=== PATIENT | male | born 1945 | race Caucasian/White ===

== ENCOUNTER 2017-07-01 11:37 | Emergency (ER) | payer MEDICARE ==
[~2017-07-01] VITALS: Ht 167.6 cm; Wt 83.2 kg
[2017-07-01 12:53] LABS: URINE BLOOD DIPSTICK LARGE (NEGATIVE); URINE GLUCOSE - DIPSTICK 100 mg/dL (NEGATIVE); URINE KETONE TRACE mg/dL (NEGATIVE); URINE LEUK ESTERASE NEGATIVE (NEGATIVE); URINE NITRITE - DIPSTICK NEGATIVE (Negative); URINE PROTEIN - DIPSTICK 100 mg/dL (NEG-TRACE); URINE SPECIFIC GRAVITY >=1.030; URINE UROBILINOGEN - DIPSTICK 0.2 E.U./dL (0.2)
[2017-07-01 12:54] LABS: URINE BILIRUBIN - DIPSTICK SMALL (NEGATIVE); URINE CLARITY CLOUDY; URINE COLOR DK. YELLOW; URINE EPITHELIAL CELLS MODERATE EPI/hpf (0-FEW); URINE RBC 25-50 RBC/hpf (0-5)
[2017-07-01 13:43] LABS: HEMATOCRIT 42.3 % (39.0-50.0); HEMOGLOBIN 14.1 g/dl (14.0-18.0); IMMATURE GRANULOCYTES 0.7 % (0.0-1.0); MEAN CELL VOLUME 95.3 fL CALC (80.0-100.0); MEAN CORPUSCULAR HGB 31.8 pG CALC (26.0-32.0); MEAN CORPUSCULAR HGB CONC 33.3 g/L CALC (32.0-36.0); NEUT# 13.12 thou/uL (1.82-7.42); RED BLOOD COUNT 4.44 mill/uL (4.70-6.10); RED CELL DISTRI WIDTH 13.2 % (11.5-15.5)
[2017-07-01 13:50] LABS: ALBUMIN 4.4 g/dL (3.2-5.0); BILIRUBIN, TOTAL 0.8 mg/dL (0.0-1.4); CALCIUM 9.6 mg/dL (8.4-10.2); CREATININE 2.8 mg/dL (0.7-1.3); POTASSIUM 4.6 mmol/l (3.5-5.1); TOTAL PROTEIN 7.6 g/dL (6.3-8.2)
[2017-07-01] MEDS ORDERED: BACTRIM DS1 TAB PO (14:46)
[2017-07-01] MEDS ORDERED: TAMSULOSIN0.4 MG PO (14:46)
[2017-07-01] MEDS ORDERED: NORCO1 TA1 PO (14:46)
[2017-07-01] MEDS ORDERED: MOTRIN400 MG PO (14:46)
[2017-07-01 15:16] VITALS: BP 149/80
== END 2017-07-01 15:17 | disposition home or self-care (01) ==
LOC: ED 11:37
PROVIDERS: Family Medicine
DX: N13.2 Hydronephrosis with renal and ureteral calculous obstruction (principal); E11.9 Type 2 diabetes mellitus without complications

== ENCOUNTER 2019-07-20 11:03 | Inpatient (IN) | payer MEDICARE ==
[~2019-07-20] VITALS: Ht 152.4 cm; Wt 63.0 kg
[2019-07-20] VITALS (10 sets, daily range): BP systolic 99–129; BP diastolic 53–73
[~2019-07-20 11:03] MED LIST: BACTRIM DS1 TAB PO; MOTRIN400 MG PO; NORCO1 TA1 PO; TAMSULOSIN0.4 MG PO
[2019-07-20 12:01] LABS: HEMOGLOBIN 13.6 g/dl (14.0-18.0); IMMATURE GRANULOCYTES 4.6 % (0.0-5.0); MEAN CELL VOLUME 94.8 fL CALC (80.0-100.0); MEAN CORPUSCULAR HGB 30.7 pG CALC (26.0-32.0); MEAN CORPUSCULAR HGB CONC 32.4 g/L CALC (32.0-36.0); NEUT# 25.15 thou/uL (1.82-7.42); RED BLOOD COUNT 4.43 mill/uL (4.70-6.10); RED CELL DISTRI WIDTH 12.4 % (11.5-15.5)
[2019-07-20 12:16] LABS: ALBUMIN 3.8 g/dL (3.2-5.0); AMYLASE 294 u/l (30-110); BILIRUBIN, TOTAL 0.5 mg/dL (0.0-1.4); BUN 62 mg/dL (8-23); BUN/CREATININE RATIO 17 (12-20 (CALC)); CHLORIDE 100 mmol/l (95-108); CREATININE 3.7 mg/dL (0.7-1.3); GFR 16 ML/MIN (>=60 (CALC)); GFR FOR AFR.AMER. 20 ML/MIN (>=60 (CALC)); MAGNESIUM 3.2 mg/dL (1.6-2.3); SGOT/AST 16 u/l (19-48); SODIUM 139 mmol/l (137-146); TOTAL PROTEIN 7.9 g/dL (6.3-8.2)
[2019-07-20 12:21] LABS: ACT PARTIAL THROMBO TIME 27.9 SECONDS (20.0-32.5); INTERNATIONAL NORMALIZED RATIO 1.2 RATIO (0.7-1.3); PROTHROMBIN TIME 12.1 SECONDS (9.0-12.5)
[2019-07-20 12:25] LABS: ALKALINE PHOSPHATASE 147 u/l (38-126); CARBON DIOXIDE < 5 mmol/l (22-30); ETHYL ALCOHOL < 10 mg/dl (0-30); LIPASE 2420 u/l (23-300); POTASSIUM 5.5 mmol/l (3.5-5.1)
[2019-07-20 13:45] LABS: URINE BLOOD DIPSTICK LARGE (NEGATIVE); URINE COLOR YELLOW; URINE GLUCOSE - DIPSTICK >=1000 mg/dL (NEGATIVE); URINE KETONE >=80 mg/dL (NEGATIVE); URINE LEUK ESTERASE NEGATIVE (NEGATIVE); URINE NITRITE - DIPSTICK NEGATIVE (Negative); URINE PH 5.5 (4.5-8.0); URINE PROTEIN - DIPSTICK 30 mg/dL (NEG-TRACE); URINE SPECIFIC GRAVITY 1.025; URINE UROBILINOGEN - DIPSTICK 0.2 E.U./dL (0.2)
[2019-07-20 13:49] LABS: URINE BILIRUBIN - DIPSTICK NEGATIVE (NEGATIVE)
[2019-07-20 13:50] LABS: BARBITURATES NEGATIVE (NEGATIVE); COCAINE NEGATIVE (NEGATIVE); METHADONE NEGATIVE (NEGATIVE); OXCYCODONE NEGATIVE (NEGATIVE); TETRAHYDROCANNABIONOL NEGATIVE (NEGATIVE); TRICYLIC ANTIDEPRESSANTS NEGATIVE (NEGATIVE)
[2019-07-20 13:51] LABS: URINE BACTERIA FEW hpf; URINE SQUAMOUS EPITHELIAL CELL FEW EPI/hpf (0-FEW)
[2019-07-20 14:07] LABS: BUN 63 mg/dL (8-23); BUN/CREATININE RATIO 20 (12-20 (CALC)); CHLORIDE 107 mmol/l (95-108); CREATININE 3.2 mg/dL (0.7-1.3); GFR 19 ML/MIN (>=60 (CALC)); GFR FOR AFR.AMER. 23 ML/MIN (>=60 (CALC)); SODIUM 141 mmol/l (137-146)
[2019-07-20 14:32] LABS: ANION GAP 35 (6-22 (CALC)); CARBON DIOXIDE < 5 mmol/l (22-30)
[2019-07-20 14:33] LABS: POTASSIUM 5.7 mmol/l (3.5-5.1)
[2019-07-20 18:09] LABS: BUN 55 mg/dL (8-23); BUN/CREATININE RATIO 21 (12-20 (CALC)); CHLORIDE 111 mmol/l (95-108); CREATININE 2.6 mg/dL (0.7-1.3); GFR 24 ML/MIN (>=60 (CALC)); GFR FOR AFR.AMER. 30 ML/MIN (>=60 (CALC)); POTASSIUM 4.8 mmol/l (3.5-5.1); SODIUM 143 mmol/l (137-146)
[2019-07-20 18:15] LABS: ANION GAP 32 (6-22 (CALC)); CARBON DIOXIDE < 5 mmol/l (22-30)
[2019-07-20 21:27] LABS: POTASSIUM 4.4 mmol/l (3.5-5.1)
[2019-07-21] VITALS (16 sets, daily range): BP systolic 81–123; BP diastolic 39–67
[2019-07-21 01:42] LABS: CREATININE 1.6 mg/dL (0.7-1.3); POTASSIUM 3.8 mmol/l (3.5-5.1)
[2019-07-21 05:45] LABS: MEAN CELL VOLUME 90.7 fL CALC (80.0-100.0); MEAN CORPUSCULAR HGB 30.5 pG CALC (26.0-32.0); MEAN CORPUSCULAR HGB CONC 33.7 g/L CALC (32.0-36.0); RED BLOOD COUNT 3.11 mill/uL (4.70-6.10); RED CELL DISTRI WIDTH 12.4 % (11.5-15.5)
[2019-07-21 05:59] LABS: HEMATOCRIT 28.2 % (39.0-50.0); HEMOGLOBIN 9.5 g/dl (14.0-18.0)
[2019-07-21 06:07] LABS: CREATININE 1.5 mg/dL (0.7-1.3); CREATININE 1.6 mg/dL (0.7-1.3); POTASSIUM 3.5 mmol/l (3.5-5.1); POTASSIUM 3.7 mmol/l (3.5-5.1)
[2019-07-21 06:29] LABS: BILIRUBIN, TOTAL 0.2 mg/dL (0.0-1.4); TOTAL PROTEIN 5.1 g/dL (6.3-8.2)
[2019-07-21 06:30] LABS: ALBUMIN 2.2 g/dL (3.2-5.0)
[2019-07-21 10:18] LABS: CREATININE 1.4 mg/dL (0.7-1.3); POTASSIUM 3.5 mmol/l (3.5-5.1)
[2019-07-22] VITALS (10 sets, daily range): BP systolic 94–119; BP diastolic 55–74
[2019-07-22 08:47] LABS: HEMATOCRIT 32.9 % (39.0-50.0); HEMOGLOBIN 10.9 g/dl (14.0-18.0); IMMATURE GRANULOCYTES 1.4 % (0.0-5.0); MEAN CELL VOLUME 92.2 fL CALC (80.0-100.0); MEAN CORPUSCULAR HGB 30.5 pG CALC (26.0-32.0); MEAN CORPUSCULAR HGB CONC 33.1 g/L CALC (32.0-36.0); NEUT# 9.49 thou/uL (1.82-7.42); RED BLOOD COUNT 3.57 mill/uL (4.70-6.10); RED CELL DISTRI WIDTH 12.6 % (11.5-15.5)
[2019-07-22 09:06] LABS: ALBUMIN 2.5 g/dL (3.2-5.0); ALKALINE PHOSPHATASE 91 u/l (38-126); BUN 29 mg/dL (8-23); BUN/CREATININE RATIO 26 (12-20 (CALC)); CARBON DIOXIDE 13 mmol/l (22-30); CHLORIDE 113 mmol/l (95-108); CREATININE 1.1 mg/dL (0.7-1.3); GFR > 60 ML/MIN (>=60 (CALC)); GFR FOR AFR.AMER. > 60 ML/MIN (>=60 (CALC)); SODIUM 136 mmol/l (137-146); TOTAL PROTEIN 5.6 g/dL (6.3-8.2)
[2019-07-22 09:08] LABS: ANION GAP 14 (6-22 (CALC)); BILIRUBIN, TOTAL 0.5 mg/dL (0.0-1.4); POTASSIUM 4.4 mmol/l (3.5-5.1); SGOT/AST 23 u/l (19-48)
[2019-07-23 04:00] VITALS: BP 136/68
[2019-07-23 07:06] LABS: ANION GAP 16 (6-22 (CALC)); BUN 20 mg/dL (8-23); BUN/CREATININE RATIO 19 (12-20 (CALC)); CARBON DIOXIDE 17 mmol/l (22-30); CHLORIDE 107 mmol/l (95-108); CREATININE 1.1 mg/dL (0.7-1.3); GFR > 60 ML/MIN (>=60 (CALC)); GFR FOR AFR.AMER. > 60 ML/MIN (>=60 (CALC)); POTASSIUM 3.3 mmol/l (3.5-5.1); SODIUM 137 mmol/l (137-146)
[2019-07-23 07:48] VITALS: BP 114/74
[2019-07-23 14:50] VITALS: BP 95/59
[2019-07-23 19:25] VITALS: BP 101/65
[2019-07-24 04:00] VITALS: BP 104/64
[2019-07-24 05:18] LABS: HEMATOCRIT 33.3 % (39.0-50.0); HEMOGLOBIN 11.4 g/dl (14.0-18.0); MEAN CORPUSCULAR HGB 30.8 pG CALC (26.0-32.0); MEAN CORPUSCULAR HGB CONC 34.2 g/L CALC (32.0-36.0); RED BLOOD COUNT 3.7 mill/uL (4.70-6.10); RED CELL DISTRI WIDTH 12.8 % (11.5-15.5)
[2019-07-24 05:36] LABS: ANION GAP 13 (6-22 (CALC)); BUN 19 mg/dL (8-23); BUN/CREATININE RATIO 16 (12-20 (CALC)); CHLORIDE 108 mmol/l (95-108); CREATININE 1.2 mg/dL (0.7-1.3); GFR 60 ML/MIN (>=60 (CALC)); GFR FOR AFR.AMER. > 60 ML/MIN (>=60 (CALC)); POTASSIUM 3.7 mmol/l (3.5-5.1); SODIUM 138 mmol/l (137-146)
[2019-07-24 05:50] LABS: CARBON DIOXIDE 21 mmol/l (22-30)
[2019-07-24 08:26] VITALS: BP 92/64
[2019-07-24] MEDS ORDERED: GLYBURIDE5 M1 PO (11:59)
[2019-07-24] MEDS ORDERED: ZESTRIL10 M1 PO (12:01)
[2019-07-24 15:49] VITALS: BP 78/47
[2019-07-24 16:11] VITALS: BP 103/60
[2019-07-24 19:45] VITALS: BP 93/67
[2019-07-25 04:35] VITALS: BP 110/63
[2019-07-25 07:50] VITALS: BP 103/54
[2019-07-25] MEDS ORDERED: LEVEMIR100 UNIT/M SC (11:40)
[2019-07-25] MEDS ORDERED: TAMSULOSIN HCL0.4 MG PO (11:40)
[2019-07-25] MEDS ORDERED: PANTOPRAZOLE SO40 M1 PO (11:45)
[2019-07-25 16:55] VITALS: BP 96/64
== END 2019-07-25 18:27 | disposition home or self-care (01) | DRG 638 ==
LOC: ED 11:03 → ED-I 12:20 → ED 12:44 → ICU 12:45 → MS2 12:45
PROVIDERS: Internal Medicine; ADMIT Internal Medicine; ATTEND Internal Medicine
DX: E11.10 Type 2 diabetes mellitus with ketoacidosis without coma (principal); N17.9 Acute kidney failure, unspecified; N13.2 Hydronephrosis with renal and ureteral calculous obstruction; E86.0 Dehydration; N28.1 Cyst of kidney, acquired; I10 Essential (primary) hypertension; K21.9 Gastro-esophageal reflux disease without esophagitis; F32.9 Major depressive disorder, single episode, unspecified; R68.0 Hypothermia, not associated with low environmental temperature; T50.916A Underdosing of multiple unspecified drugs, medicaments and biological substances, initial encounter; Z91.128 Patient's intentional underdosing of medication regimen for other reason; Z60.2 Problems related to living alone; Z87.442 Personal history of urinary calculi
CPT/HCPCS: S0073